=== PATIENT | male | born 1945 | race Caucasian/White ===

== ENCOUNTER 2022-03-14 14:27 | Outpatient (CLI) | payer MEDICARE, OTHER ==
[~2022-03-14 14:27] MED LIST: Iopamidol 300 61% 100 ML VIAL FS ONE
== END 2022-03-14 14:28 | disposition home or self-care (01) ==
LOC: CSHCT 14:27
PROVIDERS: ATTEND Urology
DX: R31.29 Other microscopic hematuria (principal); I71.4 Abdominal aortic aneurysm, without rupture; I72.3 Aneurysm of iliac artery; I70.90 Unspecified atherosclerosis; K80.20 Calculus of gallbladder without cholecystitis without obstruction; K57.30 Diverticulosis of large intestine without perforation or abscess without bleeding
CPT/HCPCS: 74178; 82565